=== PATIENT | male | born 1960 | race Caucasian/White ===

== ENCOUNTER 2023-01-06 06:43 | Emergency (ER) | payer BC, OTHER ==
--- OUTSIDE RECORDS SUMMARY | 2023-01-06 06:45 | XMS REPORT | Continuity of Care Document ---
:1960 Author Organization [facility] t Address [address] [place] [address] [place] [id number] Care Team Providers Name Role Phone Ronna Garza MD Primary Care Physician MD DARIUS Attending Clinician Unavailable NOELLE BARRIOS Attending Clinician Unavailable JAILENE CHAMBERS Attending Clinician Unavailable Jailene Chambers DO Attending Clinician GINNA TRUJILLO Attending Clinician Unavailable Ginna Dey Attending Clinician LAB90 Attending Clinician Unavailable Noelle Schaffer Attending Clinician RONNA GARZA Attending Clinician Unavailable VASHTI ARIAS Attending Clinician Unavailable GINNA TRUJILLO Admitting Clinician Unavailable Payers Payer Name Policy Type Policy Number Effective Date Expiration Date [facility] [employer] OF 9 [id number] 2019 [place] (ERS-BCBS 00:00:00 CAPITATED) [facility] [id number] 2019 00:00:00 Problems Condition Condition Condition Status Onset Resolution Last Treating Co mments Source Name Details Category Date Date Treatment Clinician Date Hyperlipid Hyperlipid Disease Active 2019-05 Carmita goncalves emia 0-20 Seybold 00:00: 00 Restless Restless Disease Active 2019-05 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 00:00: 00 ZOFIA ZOFIA Disease Active 2019-05 Theresa (obstructi (obstructi 0-20 Se ybold ve sleep ve sleep 00:00: apnea) apnea) 00 Allergies, Adverse Reactions, Alerts Allergy Allergy Status Severity Reaction(s) Onset Inactive Treating Comm ents Source Name Type Date Date Clinician Naproxen Propensi Active Other - See "attacks Univers ty to comments 11-09 soft ity of adverse 00:00: tissue of [place] reaction 00 body" Medical s Branch NAPROXEN DRUG Active Other-Cmnt Univ ers INGREDI 11-09 ity of 00:00: [place] 00 Medical Branch Naproxen Propensi Active Rash Theresa Sodium ty to 05-31 Seybold adverse 00:00: reaction 00 s NO KNOWN Drug Active Univers ALLERGIE Class ity of S [facility] Social History Social Habit Start Date Stop Date Quantity Comments Source History SDKS Theresa mayo Alcohol Comment Exposure to 2021-10-30 2021-11-09 Not sure University SARS-CoV-2 00:00:00 11:46:00 [facility] [place] (event) Branch Alcohol intake 2021-07-21 2021-07-21 Current drinker Sravani Smith 00:00:00 00:00:00 of alcohol (finding) Tobacco use and 2019-05-08 2019-05-08 Smokeless tobacco Delfino patel Seybold exposure 00:00:00 00:00:00 non-user History SDKS 2019-05-08 2019-05-08 2 Theresa mayo Alcohol Frequency 00:00:00 00:00:00 History SDOH 2019-05-08 2019-05-08 1 Theresa mayo Alcohol Std 00:00:00 00:00:00 Drinks History SDKS 2019-05-08 2019-05-08 1 Theresa mayo Alcohol Binge 00:00:00 00:00:00 Sex Ass[birth year] Univers[facility] of 00:00:00 00:00:00 [facility] Smoking Status Start Date Stop Date Source Unknown if [facility] [place] [facility] [place] Never smoked tobacco Theresa morataya Medications Ordered Filled Start Stop Current Ordering Indication Dosage Frequency Signature Comments Components Source Medication Medication Date Date Medication? Clinician (SIG) Name Name ondansetron No 4mg 4 mg, Univ ers (ZOFRAN-ODT 11-09 Oral, ity of ) 18:30: 17:47 ONCE, 1 [place] disintegrat 00 :00 dose, On Medi taryn ing tablet Tue11/09/21 Bra nch 4 mg at 1330, Routine NaCl 0.9% 2021- No 1000mL at 999 Uni vers (NS) bolus 11-09 mL/hr, ity of infusion 18:30: 19:56 1,000 mL, Percy as 1,000 mL 00 :00 IV Medical Infusion, Branch ONCE, 1 dose, On Tue11/09/21 at 1330, KULWANT morpHINE (4 No 4mg 4 mg, Slow Univers mg/mL) 11-09 IV Push, ity of injection 4 17:30: 17:43 [place] :[place] dose, On Medical Tue11/09/21 Branch at 1230, STAT Gabapentin Yes [id number] 300mg Take 1 Theresa 300 MG oral 3-15 capsule Seybo ld Capsule 00:00: (300 mg 00 total) by mouth every night at bedtime "need appt" Simvastatin Yes [id number] 20mg Take 1 Theresa 20 MG oral 3-15 tablet (20 Sey bold Tablet 00:00: mg total) 00 by mouth every night at bedtime Celecoxib Yes [id number] 200mg Take 1 Theresa (CeleBREX) 3-15 [id number] capsule Seyb old 200 MG oral 00:00: (200 mg Capsule 00 total) by mouth in the morning and 1 capsule (200 mg total) in the evening. Cyclobenzap Yes [id number] 5mg Q.[id number] Take 1 Theresa rine HCl 5 3-15 [id number] tablet (5 Seybold MG oral 00:00: 3D mg total) Tablet 00 by mouth 3 times daily as needed for muscle spasms Gabapentin 2020-05- No [id number] 300mg Take 1 Theresa 300 MG oral 0-12 03-15 capsule Seyb old Capsule 00:00: 00:00 (300 mg 00 :00 total) by mouth every night at bedtime "need appt" Simvastatin 2021- No TAKE 1 Javi sey 20 MG oral 12-22 TABLET(20 Sey bold Tablet 00:00: 00:00 MG) BY 00 :00 MOUTH EVERY NIGHT AT BEDTIME Diclofenac 2021- No [id number] 75mg Take 1 Theresa Sodium 75 07-01 [id number] tablet (75 S eybold MG oral 00:00: 00:00 mg total) Tablet 00 :00 by mouth 2 Delayed times Response daily As needed for pain. Take with meal Acetaminoph 2021- No [id number] 1{tbl} Take 1 Theresa en-Codeine 07-01 [id number] tablet by S eybold 300-30 MG 00:00: 00:00 mouth oral Tablet 00 :00 every 12 hours as needed for pain (for mod pain. caution sedation) Immunizations Ordered Immunization Filled Immunization Date Status Commen ts Source Name Name Covid-19 Vaccine 2020-06-19 Completed Theresa moreau Moderna (Spikevax), 00:00:00 Mrna-lnp, Matt Protein, Pf Covid-19 Vaccine 2020-05-22 Completed Theresa moreau Moderna (Spikevax), 00:00:00 Mrna-lnp, Matt Protein, Pf Vital Signs Vital Name Observation Time Observation Value Comments Source Systolic blood 2021-11-09 19:27:50 142 mm[facility]Hg[facility] 2021-11-09 19:27:50 92 mm[Hg] [facility] Heart rate 2021-11-09 19:27:50 58 /min [facility] Respiratory rate 2021-11-09 19:27:50 19 /min [facility] Oxygen saturation in 2021-11-09 19:27:50 98 /min [facility] Arterial blood by [facility] Pulse oximetry Branch Body temperature 2021-11-09 17:04:37 36 Melissa [facility] Body height 2021-11-09 16:47:00 182.9 cm [facility] Body weight 2021-11-09 16:47:00 145.151 kg [facility] BMI 2021-11-09 16:47:00 43.40 kg/m2 [facility] Systolic blood 2021-07-21 13:44:00 136 mm[Hg] Theresa Seybold pressure Diastolic blood 2021-07-21 13:44:00 78 mm[Hg] Kelse y Seybold pressure Heart rate 2021-07-21 13:44:00 65 /min Theresa bowersbomaria esther Body temperature 2021-07-21 13:44:00 36.89 Melissa Marienathalia bowers Seybold Respiratory rate 2021-07-21 13:44:00 12 /min Marie elissa Orlandoybold Body height 2021-07-21 13:44:00 182.9 cm Theresa bowersbomaria esther Body weight 2021-07-21 13:44:00 146.965 kg Theresa bowersbomaria esther BMI 2021-07-21 13:44:00 43.94 kg/m2 Theresa moreau Procedures Procedure Date / Time Performed Performing Clinician Matilde e CT ABDOMEN PELVIS WO 2021-11-09 18:17:11 Ginna Trujillo [facility] CONTRAST [facility] Branch LIPASE 2021-11-09 17:43:00 Cassandra [facility] COMP. METABOLIC PANEL 2021-11-09 17:43:00 Ginna Trujillo [facility] ([id number]) [facility] CBC WITH DIFF 2021-11-09 17:43:00 Cassandra [facility] URINALYSIS 2021-11-09 17:43:00 Cassandra [facility] CONSENT/REFUSAL FOR 2021-11-09 16:54:31 Doctor Unassigned, No [facility] [place] [facility] DIAGNOSIS AND Name Medical [place] TREATMENT NOTICE OF PRIVACY 2021-11-09 16:42:03 Doctor Unassigned, No Univ [facility] Name [facility] EXTERNAL IMAGING 2021-07-21 16:01:00 Noelle Barrios old Encounters Start End Encounter Admission Attending Care Care Encounter Source Date/Time Date/Time Type Type Clinicians Facility Department ID 2023-01-04 2023-01-04 Outpatient ROSELINE THERESA MOE [id number] Theresa 00:00:00 00:00:00 MD DAVIDE Seybol d 2022-11-27 2022-11-27 Outpatient SOPHIE THERESA MOE [id number] Theresa 00:00:00 00:00:00 NOELLE Seybol d 2022-09-24 2022-09-24 Outpatient HUNDL THERESA MOE [id number] Theresa 00:00:00 00:00:00 NOELLE Seybol d 2022-08-09 2022-08-09 Outpatient HUNDEmilia THERESA MOE [id number] Theresa 00:00:00 00:00:00 NOELLE Seybol d 2022-07-01 2022-07-01 Outpatient HUNDEmilia THERESA MOE [id number] Theresa 00:00:00 00:00:00 NOELLE Seybol d 2022-06-30 2022-06-30 Outpatient SOPHIE THERESA MOE [id number] Theresa 00:00:00 00:00:00 NOELLE Seybol d 2022-06-07 2022-06-07 Outpatient SOPHIE THERESA MOE [id number] Theresa 00:00:00 00:00:00 NOELLE Seybol d 2022-05-26 2022-05-26 Outpatient SOPHIE THERESA MOE [id number] Theresa 00:00:00 00:00:00 NOELLE Seybol d 2022-04-28 2022-04-28 Outpatient SOPHIE THERESA MOE [id number] Theresa 00:00:00 00:00:00 NOELLE Seybol d 2022-01-15 2022-01-15 Outpatient SOPHIE THERESA MOE [id number] Theresa 00:00:00 00:00:00 NOELLE Seybol d 2021-12-18 2021-12-18 Outpatient ROSELINE THERESA MOE [id number] Theresa 00:00:00 00:00:00 MD DAVIDE Seybol d 2021-12-08 2021-12-08 Outpatient THERESA CHAMBERS [id number] Theresa 08:30:00 08:30:00 JAILENE Seybol d 2021-11-23 2021-11-23 Outpatient THERESA CHAMBERS [id number] Theresa 00:00:00 00:00:00 JAILENE Seybol d 2021-11-12 2021-11-12 Outpatient THERESA CHAMBERS [id number] Theresa 00:00:00 00:00:00 JAILENE Seybol d 2021-11-10 2021-11-10 Office Benito Chambers [id number] Theresa 14:00:00 14:30:00 Visit Jailene Rogers [id number] Se mandy [id number] 2021-11-09 2021-11-09 Emergency X CASSANDRA, [facility] ERT [id number] Univers 11:45:00 14:59:00 GINNA mcgee [facility] 2021-11-09 2021-11-09 Emergency [facility] [id number] Univers 11:45:00 14:59:00 Ginna CYR [id number] i ty [facility] [id number] [facility] [id number] 2021-09-18 2021-09-18 Outpatient THERESA BARRIOS [id number] Theresa 00:00:00 00:00:00 NOELLE Seybol d 2021-09-18 2021-09-18 Outpatient THERESA BARRIOS [id number] Theresa 00:00:00 00:00:00 NOELLE Seybol d 2021-08-17 2021-08-17 Outpatient THERESA MOE [id number] Theresa 10:00:00 10:00:00 Seybol d 2021-07-30 2021-07-30 Outpatient THERESA BARRIOS [id number] Theresa 00:00:00 00:00:00 NOELLE Seybol d 2021-07-29 2021-07-29 Outpatient THERESA BARRIOS [id number] Theresa 00:00:00 00:00:00 NOELLE Seybol d 2021-07-28 2021-07-28 Outpatient SOPHIE THERESA MOE [id number] Theresa 00:00:00 00:00:00 NOELLE Seybol d 2021-07-22 2021-07-22 Outpatient THERESA MOE [id number] Theresa 00:00:00 00:00:00 Seybol d 2021-07-21 2021-07-21 Outpatient LAB90 THERESA MOE [id number] Theresa 09:55:00 09:55:00 Seybol d 2021-07-21 2021-07-21 Office Benito Barrios [id number] Theresa 09:00:00 09:30:00 Visit Noelle Ken [id number] mandy [id number] 2021-07-21 2021-07-21 Outpatient DIANAEmilia THERESA MOE [id number] Theresa 00:00:00 00:00:00 NOELLE Seybol d 2021-04-15 2021-04-15 Outpatient THERESA GARZA [id number] Theresa 00:00:00 00:00:00 RONNA Seybol d 2020-12-22 2020-12-22 Outpatient LILLYTEHRESAMYAEmilia MOE [id number] Theresa 00:00:00 00:00:00 MD DAVIDE Seybol d 2020-12-13 2020-12-13 Outpatient VASHTI ARIAS [id number] Theresa 08:50:00 08:50:00 Seybol d Results Test Description Test Time Test Comments Results Result Comments Source COMP. METABOLIC PANEL (02407) 2021-11-09 18:17:22 Test Item Value Reference Range Interpretation Comme nts NA (test code = 8466541650) 140 mmol/L 135-145 K (test code = 0244606188) 4.5 mmol/L 3.5-5.0 CL (test code = 1671808993) 100 mmol/L 98-108 CO2 TOTAL (test code = 1397091654) 28 mmol/L 23-31 AGAP (test code = 4137476141) 2-16 BUN (test code = 0933692939) 16 mg/dL 7-23 GLUCOSE (test code = 8019346663) 114 mg/dL 70-110 H CREATININE (test code = 0.93 mg/dL 0.60-1.25 3231251346) TOTAL BILI (test code = 1.6 mg/dL 0.1-1.1 H 9293047249) CALCIUM (test code = 2196171955) 9.4 mg/dL 8.6-10.6 T PROTEIN (test code = 4827981690) 7.5 g/dL 6.3-8.2 ALBUMIN (test code = 7016068778) 4.8 g/dL 3.5-5.0 ALK PHOS (test code = 0421552481) 91 U/L 34-122 ALTv (test code = 1742-6) 21 U/L 5-50 AST(SGOT) (test code = 8766014514) 26 U/L 13-40 eGFR (test code = 6737411744) mL/min/1.73m2 HERMELINDO (test code = HERMELINDO) Association of Glomerular Filtration Rate (GFR) and Staging of Kidney Disease* + +-------- + ------+| GFR (mL/min/1.73 m2) ?| With Kidney Damage ?| ?Without Kidney Damage+ +-- + +| ?>90 ?| ?Stage one ?| ? Normal ?+ +------- + -------+| ?60-89 ?| ?Stage two ?| ? Decreased GFR ? + +-------- + ------+| ?30-59 ?| ?Stage three ?| ? Stage three ? + +-------- + ------+| ?15-29 ?| ?Stage four ? | ? Stage four ?+ +------- + -------+| ?<15 (or dialysis) ? ?| ?Stage five ? | ? Stage five ?+ +------- + -------+ *Each stage assumes the associated GFR level has been in effect for at least three months. ?Stages 1 to 5, with or without kidney disease, indicate chronic kidney disease. Notes: Determination of stages one and two (with eGFR >59mL/min/1.73 m2) requires estimation of kidney damage for at least three months as defined by structural or functional abnormalities of the kidney, manifested by either:Pathological abnormalities or Markers of kidney damage (including abnormalities in the composition of the blood or urine or abnormalities in imaging tests). Lab Interpretation (test code = Abnormal 22829-0) [facility] 18[facility]16:42 Test Item Value Reference Range Interpretation Comments LIPASE (test code = 7458777783) 87 U/L 0-220 Lab Interpretation (test code = Normal 48610-9) [facility] WITH [id number] 18:04:05 Test Item Value Reference Range Interpretation Comments WBC (test code = See_Comment [Automated 6690-2) message] The sy stem which generated this result transmitted reference range : 4.20 - 10.70 10*3/?L. The reference range was not used to interpret this result as normal/abnormal . RBC (test code = See_Comment [Automated 789-8) message] The sy stem which generated this result transmitted reference range : 4.26 - 5.52 10*6/?L. The reference range was not used to interpret this result as normal/abnormal . HGB (test code = 17.0 g/dL 12.2-16.4 H 718-7) HCT (test code = 49.5 % 38.4-49.3 H 4544-3) MCV (test code = 93.8 fL 81.7-95.6 787-2) MCH (test code = 32.2 pg 26.1-32.7 785-6) MCHC (test code = 34.3 g/dL 31.2-35.0 786-4) RDW-SD (test code = 47.8 fL 38.5-51.6 92865-9) RDW-CV (test code = 13.9 % 12.1-15.4 788-0) PLT (test code = See_Comment [Automated 777-3) message] The sy stem which generated this result transmitted reference range : 150 - 328 10*3/ ?L. The reference r jacki was not used to interpret this result as normal/abnormal . MPV (test code = 10.3 fL 9.8-13.0 40063-3) NRBC/100 WBC (test See_Comment [Automat ed code = 1692954658) message] The system which generated this result transmitted reference range : 0.0 - 10.0 /100 WBCs. The refer ence range was not u sed to interpret th is result as normal/abnormal . NRBC x10^3 (test code <0.01 See_Comment [Auto mated = 0098415888) message] The s ystem which generated this result transmitted reference range : 10*3/?L. The reference range was not used to interpret this result as normal/abnormal . GRAN MAT (NEUT) % 76.3 % (test code = 770-8) IMM GRAN % (test code 0.50 % = 8051689669) LYMPH % (test code = 14.6 % 736-9) MONO % (test code = 6.8 % 5905-5) EOS % (test code = 1.1 % 713-8) BASO % (test code = 0.7 % 706-2) GRAN MAT x10^3(ANC) 5.65 10*3/uL 1.99-6.95 (test code = 5154370688) IMM GRAN x10^3 (test 0.04 10*3/uL 0.00-0.06 code = 3820440421) LYMPH x10^3 (test code 1.08 10*3/uL 1.09-3.23 L = 731-0) MONO x10^3 (test code 0.50 10*3/uL 0.36-1.02 = 742-7) EOS x10^3 (test code = 0.08 10*3/uL 0.06-0.53 711-2) BASO x10^3 (test code 0.05 10*3/uL 0.01-0.09 = 704-7) Lab Interpretation Abnormal (test code = 93004-1) [facility] [id number] 16:26:00 Test Item Value Reference Range Interpretation Comments Radiology Study observation (narrative) (test code = 52918-5) HERMELINDO (test code = HERMELINDO) [facility]. ?[facility] K[facility] Right 3 View07/21/2021 ?1101 am Clinical History: ?Right knee pain Findings: ?No fracture or dislocation is seen. Moderate osteoarthritis medical compartment mainly consisting of joint space narrowing and osteophytes. Mild lateral subluxation of the tibia on the femur If patient continues to have symptoms to suggest an occult fracture, ligamentous or miniscal injury MRI would be recommended. Dictated and signed by: ?New Rod MD ?07/21/21 Complete report sent to scanning Lab Interpretation Abnormal (test code = 28953-2) Theresa Smith
[2023-01-06 07:23] LABS: Absolute Lymphocytes (CBC) 1.1 K/uL (0.7-4.9); Hematocrit 44.6 % (39.6-49.0); Lymphocytes % 15.2 % (15.3-44.8); MCV 96.8 fL (80-100); MPV 7.9 fL (7.6-11.3); Platelets 225 thou/uL (152-406); RBC Red Blood Cell Count 4.61 M/uL (4.33-5.43)
[2023-01-06] MEDS ORDERED: MORPHINE 4 MG/ML SYR ONE (07:28)
[2023-01-06] MEDS ORDERED: TAMSULOSIN 0.4 MG SR CAP ONE (07:28)
[2023-01-06] MEDS ORDERED: MAGNESIUM SULFATE 1 gm IVPB 1 GM/100 ML BAG IV ONE (07:28)
[2023-01-06] MEDS ORDERED: ONDANSETRON 4 MG/2 ML VIAL ONE (07:28)
--- NOTE | 2023-01-06 07:28 | RAD REPORT ---
EXAM DESCRIPTION: CT - Stone Protocol - 01/06/2023 7:17 am CLINICAL HISTORY: Abdominal pain. COMPARISON: 2014 TECHNIQUE: Computed axial tomography of the abdomen pelvis was obtained without oral or IV contrast. Lack of IV and oral contrast limits evaluation of solid organs, appendix, bowel, and vessels. Fermin l reformatted images were obtained and reviewed. All CT scans are performed using dose optimization technique as appropriate and may include automated exposure control or mA/KV adjustment according to patient size. FINDINGS: Tiny bilateral renal calculi Mild right hydronephrosis. 2 millimeter calculus right UVJ. Areas of cortical thinning left kidney may be related to prior inflammation Postsurgical changes involve the stomach. Small left inguinal hernia contains fat. Small umbilical hernia The liver, spleen, pancreas and right adrenal appear grossly normal 1.8 centimeter left adrenal mass unchanged. Hounsfield unit 4. It represents an adenoma There is no evidence of diverticulitis. The appendix appears normal IMPRESSION: 2 millimeter calculus right UVJ with mild right hydronephrosis
[2023-01-06 07:49] LABS: Albumin 4.1 g/dL (3.4-5.0); Bilirubin Total 1.2 mg/dL (0.2-1.0); Protein, Total 7.4 g/dL (6.4-8.2)
[2023-01-06] MEDS ORDERED: HYDROMORPHONE HCL 1 MG/ML INJ ONE ×2 (08:05→09:15)
--- NOTE | 2023-01-06 10:26 | EDPHYS ---
Physician Documentation [facility] Name: Gerhard Gonzalez Age: 62 yrs Sex: Male : 1960 Arrival Date: 01/06/2023 Time: 06:43 Bed 14 Private MD: ED Physician Chidi Simpson HPI: 01/06 07:16 This 62 yrs old Male presents to ER via Ambulatory with complaints of Back Pain. rn 07:16 The patient presents with pain that is acute. The symptoms are located in the low back. rn Onset: The symptoms/episode began/occurred this morning. The pain radiates to the abdomen. Associated signs and symptoms: Pertinent positives: dysuria, nausea, Pertinent negatives: fever, hematuria, incontinence, numbness, urinary retention. Modifying factors: The patient symptoms are alleviated by nothing, the patient symptoms are aggravated by nothing. Severity of symptoms: At their worst the symptoms were moderate, in the emergency department the symptoms have improved. The patient has experienced similar episodes in the past. The patient has not recently seen a physician. Patient reports right flank pain that radiates to the right groin, identical to previous episodes of kidney stones. Associated with nausea and dysuria but able to urinate. No fever. No trauma.. Historical: - Allergies: 07:04 Naproxen; ll1 - PMHx: 07:04 Hypertensive disorder; Kidney stone; ll1 - PSHx: 07:04 None; ll1 - Immunization history:: Adult Immunizations up to date. - Social history:: Smoking status: Patient denies any tobacco usage or history of. - Family history:: not pertinent. - Hospitalizations: : No recent hospitalization is reported. ROS: 07:16 Constitutional: Negative for fever, chills, and weight loss, Eyes: Negative for injury, rn pain, redness, and discharge, Cardiovascular: Negative for chest pain, palpitations, and edema, Respiratory: Negative for shortness of breath, cough, wheezing, and pleuritic chest pain, Abdomen/GI: Positive for right lower quadrant abdominal pain and nausea Back: Positive for right lower back pain MS/Extremity: Negative for injury and deformity, Skin: Negative for injury, rash, and discoloration, Neuro: Negative for headache, weakness, numbness, tingling, and seizure. Exam: 07:16 Constitutional: This is a well developed, well nourished patient who is awake, alert, rn and in no acute distress. ON the phone as I wlk in, appears comfortable. Head/Face: Normocephalic, atraumatic. Cardiovascular: Regular rate and rhythm. No pulse deficits. Respiratory: No increased work of breathing, no retractions or nasal flaring. Abdomen/GI: soft, no focal tenderness Back: No spinal tenderness. No costovertebral tenderness. Full range of motion. Skin: Warm, dry MS/ Extremity: Pulses equal, no cyanosis. Neuro: Awake and alert, GCS 15 Vital Signs: 07:00 BP 157 / 99; Pulse 64; Resp 16; Pulse Ox 100% on R/A; db 07:04 BP 172 / 103; Pulse 65; Resp 16; Temp 98.2; Pulse Ox 100% on R/A; Weight 147.42 kg; ll1 Height 6 ft. 0 in. ; Pain 8/10; 07:54 BP 156 / 94; Pulse 65; Resp 18; Pulse Ox 96% on R/A; db 08:45 BP 156 / 85; Pulse 63; Resp 16; Pulse Ox 97% on R/A; db 09:30 BP 152 / 81; Pulse 63; Resp 16; Pulse Ox 97% on R/A; db 11:00 BP 150 / 84; Pulse 61; Resp 16; Pulse Ox 95% on R/A; db 07:04 Body Mass Index 44.08 (147.42 kg, 182.88 cm) ll1 07:04 Pain Scale: Adult ll1 MDM: 07:01 Patient medically screened. rn 10:22 Differential diagnosis: Ureterolithiasis. Data reviewed: vital signs, nurses notes, sleep lab technologist test result(s), radiologic studies, CT scan, and as a result, I will discharge patient. Counseling: I had a detailed discussion with the patient and/or guardian regarding the historical points, exam findings, and any diagnostic results supporting the discharge/admit diagnosis, lab results, radiology results, the need for outpatient follow up, to return to the emergency department if symptoms worsen or persist or if there are any questions or concerns that arise at home. Response to treatment: the patient's symptoms have markedly improved after treatment, and as a result, I will discharge patient. Special discussion: I discussed with the patient/guardian in detail that at this point there is no indication for admission to the hospital. It is understood, however, that if the symptoms persist or worsen the patient needs to return immediately for re-evaluation. Based on the history and exam findings, there is no indication for further emergent testing or inpatient evaluation. I discussed with the patient/guardian the need to see the primary care provider for further evaluation of the symptoms. I discussed with the patient/guardian the need to see the urologist for further evaluation of the symptoms. ED course: Patient markedly improved. Patient with 2 mm distal stone almost in bladder at time of CAT scan. Normal white blood cell count. No indication for emergent procedure or admission. Last dose of Dilaudid patient got really sleepy and transiently dropped his oxygen, now more awake and alert but explained to patient that he was at his limit for pain medication and he understands. Has had multiple kidney stones in the past and will DC home with pain control and as needed nausea medication. Given return precautions. 01/06 07:04 Order name: CBC with Diff; Complete Time: 07:32 rn 01/06 07:04 Order name: CMP; Complete Time: 09:00 rn 01/06 07:04 Order name: Urinalysis w/ reflexes; Complete Time: 10:58 rn 01/06 07:04 Order name: CT Stone Protocol; Complete Time: 07:32 rn 01/06 07:04 Order name: IV Saline Lock; Complete Time: 07:26 rn 01/06 07:04 Order name: Labs collected and sent; Complete Time: 07:26 rn Administered Medications: 07:24 Drug: morphine IVP or IV 4 mg Route: IVP; Infused Over: 4 mins; Site: right antecubital;db 11:30 Follow up: Response: No adverse reaction db 07:26 Drug: Ondansetron IVP 4 mg Route: IVP; Site: right antecubital; db 11:30 Follow up: Response: No adverse reaction db 07:26 Drug: Magnesium Sulfate IVPB 1 grams Route: IVPB; Infused Over: 1 hrs; Site: right db antecubital; 08:30 Follow up: Response: No adverse reaction; IV Status: Completed infusion; IV Intake: db 100ml 07:45 Drug: Flomax PO 0.4 mg Route: PO; db 11:30 Follow up: Response: No adverse reaction db 07:54 Drug: HYDROmorphone IVP 1 mg Route: IVP; Site: right antecubital; db 11:30 Follow up: Response: No adverse reaction db 09:10 Drug: HYDROmorphone IVP 1 mg Route: IVP; Site: right antecubital; db 11:30 Follow up: Response: No adverse reaction db 11:23 Drug: Ketorolac IVP 15 mg Route: IVP; Site: right antecubital; db 11:30 Follow up: Response: No adverse reaction db Disposition Summary: 01/06/23 10:25 Discharge Ordered Location: Home rn Problem: new rn Symptoms: have improved rn Condition: Stable rn Diagnosis - Calculus of ureter rn Followup: rn - With: Private Physician - When: As needed - Reason: Recheck today's complaints, Re-evaluation by your physician Discharge Instructions: - Discharge Summary Sheet rn - Kidney Stones rn Forms: - Medication Reconciliation Form rn - Thank You Letter rn - Antibiotic fashion buying internship - Prescription Opioid Use rn - Patient Portal Instructions rn - Leadership Thank You Letter rn Prescriptions: - Flomax 0.4 mg Oral capsule - take 1 capsule by ORAL route every 24 hours As needed Take only if still rn passing kidney stone; 10 capsule; Refills: 0, Product Selection Permitted - ondansetron 4 mg Oral Tablet,disintegrating - take 1 tablet by ORAL route every 8 hours As needed; 12 tablet; Refills: 0, rn Product Selection Permitted - Tramadol 50 mg Oral Tablet - take 1 tablet by ORAL route every 8 hours as needed; 12 tablet; Refills: 0, rn Product Selection Permitted Signatures: Dispatcher [employer] Chidi Jamil MD MD rn Lewis, Lynsay, RN RN 1 Janene Tobias RN RN db
--- NOTE | 2023-01-06 10:26 | ER ---
Nurse's Notes [facility] Name: Gerhard Gonzalez Age: 62 yrs Sex: Male : 1960 Arrival Date: 01/06/2023 Time: 06:43 Bed 14 Private MD: Diagnosis: Calculus of ureter Presentation: 01/06 07:04 Chief complaint: Patient states: R flank pain with N/V since 4 AM. Coronavirus screen: ll1 Vaccine status: Patient reports receiving the 2nd dose of the covid vaccine. Client denies travel out of the [place] in the last 14 days. At this time, the client does not indicate any symptoms associated with coronavirus-19. Ebola Screen: Patient denies travel to an Ebola-affected area in the 21 days before illness onset. Initial Sepsis Screen: Does the patient meet any 2 criteria? No. Patient's initial sepsis screen is negative. Does the patient have a suspected source of infection? Yes: Dysuria/Frequency/Urgency/UTI. Risk Assessment: Do you want to hurt yourself or someone else? Patient reports no desire to harm self or others. Onset of symptoms was January 06, 2023. 07:04 Method Of Arrival: Ambulatory ll1 07:04 Acuity: SALO 3 ll1 Triage Assessment: 07:05 General: Appears uncomfortable, Behavior is calm, cooperative, appropriate for age. ll1 Pain: Complains of pain in R flank Pain currently is 8 out of 10 on a pain scale. GI: Reports nausea, vomiting. : Reports pain in right flank(s), hard to urinate. Historical: - Allergies: 07:04 Naproxen; ll1 - PMHx: 07:04 Hypertensive disorder; Kidney stone; ll1 - PSHx: 07:04 None; ll1 - Immunization history:: Adult Immunizations up to date. - Social history:: Smoking status: Patient denies any tobacco usage or history of. - Family history:: not pertinent. - Hospitalizations: : No recent hospitalization is reported. Screenin:01 [facility] ED Fall Risk Assessment (Adult) History of falling in the last 3 months, db including since admission No falls in past 3 months (0 pts) Confusion or Disorientation No (0 pts) Intoxicated or Sedated No (0 pts) Impaired Gait No (0 pts) Mobility Assist Device Used No (0 pt) Altered Elimination No (0 pt) Score/Fall Risk Level 0 - 2 = Low Risk Oriented to surroundings, Maintained a safe environment. Abuse screen: Denies threats or abuse. Denies injuries from another. Nutritional screening: No deficits noted. Tuberculosis screening: No symptoms or risk factors identified. Assessment: 07:10 Reassessment: Patient appears in no apparent distress at this time. Patient and/or db family updated on plan of care and expected duration. Pain level reassessed. Patient is alert, oriented x 3, equal unlabored respirations, skin warm/dry/pink. flank pain started last night. General: Appears in no apparent distress. uncomfortable, Behavior is calm, cooperative. Pain: Complains of pain in back and abdomen. Neuro: Level of Consciousness is awake, alert, obeys commands, Oriented to person, place, time, situation. 08:30 Reassessment: Patient appears in no apparent distress at this time. Patient and/or db family updated on plan of care and expected duration. Pain level reassessed. Patient is alert, oriented x 3, equal unlabored respirations, skin warm/dry/pink. 09:30 Reassessment: Patient appears in no apparent distress at this time. Patient and/or db family updated on plan of care and expected duration. Pain level reassessed. Patient is alert, oriented x 3, equal unlabored respirations, skin warm/dry/pink. 11:31 Reassessment: Patient appears in no apparent distress at this time. Patient and/or db family updated on plan of care and expected duration. Pain level reassessed. Patient is alert, oriented x 3, equal unlabored respirations, skin warm/dry/pink. Reassessment: Patient states feeling better. Patient states symptoms have improved. General: Appears in no apparent distress. Behavior is calm, cooperative. General: Appears in no apparent distress. comfortable. Vital Signs: 07:00 BP 157 / 99; Pulse 64; Resp 16; Pulse Ox 100% on R/A; db 07:04 BP 172 / 103; Pulse 65; Resp 16; Temp 98.2; Pulse Ox 100% on R/A; Weight 147.42 kg; ll1 Height 6 ft. 0 in. ; Pain 8/10; 07:54 BP 156 / 94; Pulse 65; Resp 18; Pulse Ox 96% on R/A; db 08:45 BP 156 / 85; Pulse 63; Resp 16; Pulse Ox 97% on R/A; db 09:30 BP 152 / 81; Pulse 63; Resp 16; Pulse Ox 97% on R/A; db 11:00 BP 150 / 84; Pulse 61; Resp 16; Pulse Ox 95% on R/A; db 07:04 Body Mass Index 44.08 (147.42 kg, 182.88 cm) ll1 07:04 Pain Scale: Adult ll1 ED Course: 06:47 Patient arrived in ED. ag3 07:01 Chidi Simpson MD is Attending Physician. rn 07:03 Janene Tobias, AILYN is Primary Nurse. db 07:04 Arm band placed on Patient placed in an exam room, on a stretcher. ll1 07:05 Triage completed. ll1 07:12 Inserted saline lock: 20 gauge in right antecubital area, using aseptic technique. db Blood collected. 07:18 CT Stone Protocol In Process Unspecified. EDMS 11:15 Pulse ox on. NIBP on. db 11:31 No provider procedures requiring assistance completed. IV discontinued, intact, db bleeding controlled, No redness/swelling at site. 11:32 Bed in low position. Call light in reach. Side rails up X2. Provided Education on: db DISCHARGE. Administered Medications: 07:24 Drug: morphine IVP or IV 4 mg Route: IVP; Infused Over: 4 mins; Site: right antecubital;db 11:30 Follow up: Response: No adverse reaction db 07:26 Drug: Ondansetron IVP 4 mg Route: IVP; Site: right antecubital; db 11:30 Follow up: Response: No adverse reaction db 07:26 Drug: Magnesium Sulfate IVPB 1 grams Route: IVPB; Infused Over: 1 hrs; Site: right db antecubital; 08:30 Follow up: Response: No adverse reaction; IV Status: Completed infusion; IV Intake: db 100ml 07:45 Drug: Flomax PO 0.4 mg Route: PO; db 11:30 Follow up: Response: No adverse reaction db 07:54 Drug: HYDROmorphone IVP 1 mg Route: IVP; Site: right antecubital; db 11:30 Follow up: Response: No adverse reaction db 09:10 Drug: HYDROmorphone IVP 1 mg Route: IVP; Site: right antecubital; db 11:30 Follow up: Response: No adverse reaction db 11:23 Drug: Ketorolac IVP 15 mg Route: IVP; Site: right antecubital; db 11:30 Follow up: Response: No adverse reaction db Medication: 11:32 VIS not applicable for this client. db Intake: 08:30 IV: 100ml; Total: 100ml. db Outcome: 10:25 Discharge ordered by . rn 11:31 Discharged to home ambulatory, with family. db 11:31 Condition: stable 11:31 Discharge instructions given to patient, Instructed on discharge instructions, follow up and referral plans. Prescriptions given X 3. 11:44 Patient left the ED. db Signatures: Dispatcher [employer] EDMS Chidi Simpson MD MD rn Fiona Gonzalez Lynsay RN RN ll1 Janene Tobias RN RN db
[2023-01-06 10:48] LABS: Specific Gravity > 1.030 (1.005-1.030); Urine Bacteria None Seen /HPF (<20); Urine Bilirubin NEGATIVE (Negative); Urine Blood 2+ (Negative); Urine Clarity Clear (Clear); Urine Color Yellow (Yellow); Urine Glucose NEGATIVE (Negative); Urine Mucus Slight /HPF (None Seen); Urine Protein TRACE (Negative); Urine Urobilinogen Normal (Normal)
[2023-01-06] MEDS ORDERED: KETOROLAC 30 MG/ML INJ ONE (11:22)
[2023-01-06 12:20] VITALS: TEMP 98.2
[2023-01-06 12:24] VITALS: BP 150/84; O2SAT 95
== END 2023-01-06 11:44 | disposition home or self-care (01) ==
LOC: ER 06:43
DX: N20.1 Calculus of ureter (principal); Z87.442 Personal history of urinary calculi; I10 Essential (primary) hypertension; Z88.6 Allergy status to analgesic agent
CPT/HCPCS: 96365; 85025; 81001; 36415; 80053; 76377; 74176; 96375; 99284; J3475; J1170 ×2; J2405

== ENCOUNTER 2023-03-04 08:30 | Emergency (ER) | payer BC ==
--- OUTSIDE RECORDS SUMMARY | 2023-03-04 08:32 | XMS REPORT | Continuity of Care Document ---
:1960 Author Organization [facility] t Address [address] [place] [address] [place] [id number] Care Team Providers Name Role Phone FRENCH GARZA Primary Care Physician Unavailable NOELLE BARRIOS Attending Clinician Unavailable FRENCH GARZA Attending Clinician Unavailable MD DARIUS Attending Clinician Unavailable JAILENE CHAMBERS Attending Clinician Unavailable Jailene Chambers DO Attending Clinician EBGINNA MUNGUIA Attending Clinician Unavailable EbrahiGinna Hunter Attending Clinician LAB90 Attending Clinician Unavailable Marcos LENTZ-CNoelle Attending Clinician VASHTI ARIAS Attending Clinician Unavailable GINNA TRUJILLO Admitting Clinician Unavailable Payers Payer Name Policy Type Policy Number Effective Date Expiration Date S [facility] 9 [id number] 2019 [place] 00:00:00 CAPITATED) [facility] [id number] 2019 00:00:00 Problems Condition Condition Condition Status Onset Resolution Last Treating Co mments Source Name Details Category Date Date Treatment Clinician Date ZOFIA ZOFIA Disease Active 2019-05 Theresa (obstructi (obstructi 0-20 Se ybold ve sleep ve sleep 00:00: apnea) apnea) 00 Hyperlipid Hyperlipid Disease Active 2019-05 K mary emia emia 0-20 Seybold 00:00: 00 Restless Restless Disease Active 2019-05 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 00:00: 00 Allergies, Adverse Reactions, Alerts Allergy Allergy Status Severity Reaction(s) Onset Inactive Treating Comm ents Source Name Type Date Date Clinician Naproxen Propensi Active Other - See "attacks Univers ty to comments 11-09 soft ity of adverse 00:00: [facility] [place] reaction 00 body" Medical s Branch NAPROXEN DRUG Active Other-Cmnt Univ ers INGREDI 7 ity of 00:00: [place] 00 [facility] Naproxen Propensi Active Rash Theresa Sodium ty to 05-31 Seybold adverse 00:00: reaction 00 s NO KNOWN Drug Active Univers ALLERGIE Class ity of S [facility] Social History Social Habit Start Date Stop Date Quantity Comments Source History SDOH Theresa mayo Alcohol Comment Exposure to 2021-10-30 2021-11-09 Not sure University SARS-CoV-2 00:00:00 11:46:00 [facility] (event) Branch Alcohol intake 2021-07-21 2021-07-21 Current drinker Sravani Smith 00:00:00 00:00:00 of alcohol (finding) Tobacco use and 2019-05-08 2019-05-08 Smokeless tobacco Ke brodyey Seybold exposure 00:00:00 00:00:00 non-user History SDRI 2019-05-08 2019-05-08 2 Theresa mayo Alcohol Frequency 00:00:00 00:00:00 History SDRI 2019-05-08 2019-05-08 1 Theresa mayo Alcohol Std 00:00:00 00:00:00 Drinks History [facility] 2019-05-08 2019-05-08 1 Theresa mayo Alcohol Binge 00:00:00 00:00:00 Sex Ass[birth year] At [birth year] Universit [facility] of 00:00:00 00:00:00 [facility] Smoking Status Start Date Stop Date Source Unknown [facility] Never smoked tobacco Theresa Seyb old Medications Ordered Filled Start Stop Current Ordering Indication Dosage Frequency Signature Comments Components Source Medication Medication Date Date Medication? Clinician (SIG) Name Name ondansetron No 4mg 4 mg, Univ ers (ZOFRAN-ODT 11-09 Oral, ity of ) 18:30: 17:47 ONCE, 1 [place] disintegrat 00 :00 dose, On Medi taryn ing tablet Tue11/09/21 Bra nch 4 mg at 1330, Routine NaCl 0.9% No 1000mL at 999 Uni vers (NS) [...] Tue11/09/21 Branch at 1230, STAT Gabapentin Yes [id number] 300mg Take 1 Theresa 300 MG oral 3-15 capsule Seybo ld Capsule 00:00: (300 mg 00 total) by mouth every night at bedtime "need appt" Simvastatin Yes [id number] 20mg Take 1 Theresa 20 MG oral 3-15 tablet (20 Sey bold Tablet 00:00: mg total) 00 by mouth every night at bedtime Celecoxib Yes [id number] 200mg Take 1 Theresa (CeleBREX) 3-15 [id number] capsule Seyb old 200 MG oral 00:00: (200 mg Capsule 00 total) by mouth in the morning and 1 capsule (200 mg total) in the evening. Cyclobenzap Yes [id number] 5mg Q.[id number] Take 1 Theresa rine HCl 5 3-15 [id number] tablet (5 Seybold MG oral 00:00: 3D mg total) Tablet 00 by mouth 3 times daily as needed for muscle spasms Gabapentin 2020-05- No [id number] 300mg Take 1 Theresa 300 MG oral 0-12 03-15 capsule Seyb old Capsule 00:00: 00:00 (300 mg 00 :00 total) by mouth every night at bedtime "need appt" Simvastatin 2021- No TAKE 1 Javi sey 20 MG oral 12-22 TABLET(20 Sey bold Tablet 00:00: 00:00 MG) BY 00 :00 MOUTH EVERY NIGHT AT BEDTIME Diclofenac 2021- No [id number] 75mg Take 1 Theresa Sodium 75 07-01 [id number] tablet (75 S eybold MG oral 00:00: 00:00 mg total) Tablet 00 :00 by mouth 2 Delayed times Response daily As needed for pain. Take with meal Acetaminoph 2021- No [id number] 1{tbl} Take 1 Theresa en-Codeine 07-01 [id number] tablet by S eybold 300-30 MG 00:00: 00:00 mouth oral Tablet 00 :00 every 12 hours as needed for pain (for mod pain. caution sedation) Vital Signs Vital Name Observation Time Observation Value Comments Source Systolic blood 2021-11-09 19:27:50 142 mm[Hg] [facility] Diastolic blood 2021-11-09 19:27:50 92 mm[Hg] [facility] Heart rate 2021-11-09 19:27:50 58 /min [facility] Respiratory rate 2021-11-09 19:27:50 19 /min [facility] Oxygen saturation in 2021-11-09 19:27:50 98 /min [facility] Arterial blood by [facility] Pulse oximetry Branch Body temperature 2021-11-09 17:04:37 36 Melissa [facility] Body height 2021-11-09 16:47:[address] [facility] Body weight 2021-11-09 16:47:[address] [facility] BMI 2021-11-09 16:47:00 43.40 kg/m2 [facility] Systolic blood 2021-07-21 13:44:00 136 mm[Hg] Theresa Seybold pressure Diastolic blood 2021-07-21 13:44:00 78 mm[Hg] Kelse y Seybold pressure Heart rate 2021-07-21 13:44:00 65 /min Theresa bowersbomaria esther Body temperature 2021-07-21 13:44:00 36.89 Melissa Marie Smith Respiratory rate 2021-07-21 13:44:00 12 /min Marie Smith Body height 2021-07-21 13:44:00 182.9 cm Theresa moreau Body weight 2021-07-21 13:44:00 146.965 kg Theresa moreau BMI 2021-07-21 13:44:00 43.94 kg/m2 Theresa moreau Procedures Procedure Date / Time Performed Performing Clinician [facility] e CT ABDOMEN PELVIS WO 2021-11-09 18:17:11 Ginna Trujillo [facility] CONTRAST [facility] LIPASE 2021-11-09 17:43:00 Cassandra [facility] COMP. METABOLIC PANEL 2021-11-09 17:43:00 Ginna Trujillo [facility] ([id number]) [facility] CBC WITH DIFF 2021-11-09 17:43:00 Cassandra [facility] URINALYSIS 2021-11-09 17:43:00 Cassandra [facility] CONSENT/REFUSAL FOR 2021-11-09 16:54:31 Doctor Unassigned, No [facility] DIAGNOSIS AND Name [facility] TREATMENT NOTICE OF PRIVACY 2021-11-09 16:42:03 Doctor Unassigned, No [facility] PRACTICES Name [facility] EXTERNAL IMAGING 2021-07-21 16:01:00 Neolle Barrios old Encounters Start End Encounter Admission Attending Care Care Encounter Source Date/Time Date/Time Type Type Clinicians Facility Department ID 2023-02-12 2023-02-12 Outpatient THERESA BARRIOS [id number] Theresa 00:00:00 00:00:00 NOELLE gil 2023-02-10 2023-02-10 Outpatient THERESA GARZA [id number] Theresa 00:00:00 00:00:00 FRENCH gil 2023-01-06 2023-01-06 Outpatient THERESA BARRIOSSEY [id number] Theresa 00:00:00 00:00:00 NOELLE Seybol d 2023-01-04 2023-01-04 Outpatient MYKELSEYONL THERESA MOE [id number] Theresa 00:00:00 00:00:00 MD DAVIDE Seybol d 2023-01-02 2023-01-02 Outpatient HUNDL THERESA MOE [id number] Theresa 00:00:00 00:00:00 NOELLE Seybol d 2022-11-27 2022-11-27 Outpatient HUNDL THERESA MOE [id number] Theresa 00:00:00 00:00:00 NOELLE Seybol d 2022-09-24 2022-09-24 Outpatient HUNDL THERESA MOE [id number] Theresa 00:00:00 00:00:00 NOELLE Seybol d 2022-08-09 2022-08-09 Outpatient HUNDL THERESA MOE [id number] Theresa 00:00:00 00:00:00 NOELLE Seybol d 2022-07-01 2022-07-01 Outpatient HUNDL THERESA MOE [id number] Theresa 00:00:00 00:00:00 NOELLE Seybol d 2022-06-30 2022-06-30 Outpatient HUNDL THERESA MOE [id number] Theresa 00:00:00 00:00:00 NOELLE Seybol d 2022-06-07 2022-06-07 Outpatient HUNDL THERESA MOE [id number] Thereas 00:00:00 00:00:00 NOELLE Seybol d 2022-05-26 2022-05-26 Outpatient HUNDL THERESA MOE [id number] Theresa 00:00:00 00:00:00 NOELLE Seybol d 2022-04-28 2022-04-28 Outpatient HUNDL, THERESA MOE [id number] Theresa 00:00:00 00:00:00 NOELLE Seybol d 2022-01-15 2022-01-15 Outpatient HUNDLTHERESA [id number] Theresa 00:00:00 00:00:00 NOELLE Seybol d 2021-12-18 2021-12-18 Outpatient ROSELINE THERESA MOE [id number] Theresa 00:00:00 00:00:00 MD DAVIDE Seybol d 2021-12-08 2021-12-08 Outpatient THREESA CHAMBERS [id number] Theresa 08:30:00 08:30:00 JAILENE Seybol d 2021-11-23 2021-11-23 Outpatient THERESA CHAMBERS [id number] Theresa 00:00:00 00:00:00 JAILENE Seybol d 2021-11-12 2021-11-12 Outpatient THERESA CHAMBERS [id number] Theresa 00:00:00 00:00:00 JAILENE Seybol d 2021-11-10 2021-11-10 Office Benito Chambers [id number] Theresa 14:00:00 14:30:00 Visit Jailene Rogers [id number] Se galvan [id number] 2021-11-09 2021-11-09 Emergency X EBRAHIM, [facility] ERT [id number] Univers 11:45:00 14:59:00 GINNA mcgee [facility] 2021-11-09 2021-11-09 Emergency Ebractm, [facility] [id number] Univers 11:45:00 14:59:00 Ginna CYR [id number] i hood [facility] [id number] [facility] [id number] [address] 2021-09-18 2021-09-18 Outpatient THERESA BARRIOS [id number] Theresa 00:00:00 00:00:00 NOELLE Seybol d 2021-09-18 2021-09-18 Outpatient THERESA BARRIOS [id number] Theresa 00:00:00 00:00:00 NOELLE Seybol d 2021-08-17 2021-08-17 Outpatient THERESA MOE [id number] Theresa 10:00:00 10:00:00 Seybol d 2021-07-30 2021-07-30 Outpatient THERESA BARRIOS [id number] Theresa 00:00:00 00:00:00 NOELLE Seybol d 2021-07-29 2021-07-29 Outpatient THERESA BARRIOS [id number] Theresa 00:00:00 00:00:00 NOELLE Seybol d 2021-07-28 2021-07-28 Outpatient THERESA BARRIOS [id number] Theresa 00:00:00 00:00:00 NOELLE Seybol d 2021-07-22 2021-07-22 Outpatient THERESA MOE [id number] Theresa 00:00:00 00:00:00 Seybol d 2021-07-21 2021-07-21 Outpatient LAB90 THERESA MOE [id number] Theresa 09:55:00 09:55:00 Seybol d 2021-07-21 2021-07-21 Office MaxinereaganBenito [id number] Theresa 09:00:00 09:30:00 Visit Noelle Rogers [id number] Se ybold [id number] 2021-07-21 2021-07-21 Outpatient THERESA BARRIOS [id number] Theresa 00:00:00 00:00:00 NOELLE Seybol d 2021-04-15 2021-04-15 Outpatient THERESA GARZA [id number] Theresa 00:00:00 00:00:00 FRENCH Seybol d 2020-12-22 2020-12-22 Outpatient ROSELINE MOE [id number] Theresa 00:00:00 00:00:00 MD DAVIDE Seybol d 2020-12-13 2020-12-13 Outpatient VASHTI ARIAS [id number] Theresa 08:50:00 08:50:00 Seybol d Results Test Description Test Time Test Comments Results Result Comments Source COMP. METABOLIC PANEL (07014) 2021-11-09 18:17:22 Test Item Value Reference Range Interpretation Comme nts NA (test code = 7962194116) 140 mmol/L 135-145 K (test code = 3308483286) 4.5 mmol/L 3.5-5.0 CL (test code = 0769759685) 100 mmol/L 98-108 CO2 TOTAL (test code = 2045231636) 28 mmol/L 23-31 AGAP (test code = 4130434892) 2-16 BUN (test code = 3754733760) 16 mg/dL 7-23 GLUCOSE (test code = 6103332528) 114 mg/dL 70-110 H CREATININE (test code = 0.93 mg/dL 0.60-1.25 5044198056) TOTAL BILI (test code = 1.6 mg/dL 0.1-1.1 H 9829944651) CALCIUM (test code = 8325550201) 9.4 mg/dL 8.6-10.6 T PROTEIN (test code = 5536388354) 7.5 g/dL 6.3-8.2 ALBUMIN (test code = 3759026496) 4.8 g/dL 3.5-5.0 ALK PHOS (test code = 3006852581) 91 U/L 34-122 ALTv (test code = 1742-6) 21 U/L 5-50 AST(SGOT) (test code = 0024795927) 26 U/L 13-40 eGFR (test code = 8620907613) mL/min/1.73m2 HERMELINDO (test code = HERMELINDO) Association [...] tests). Lab Interpretation (test code = Abnormal 32641-3) [facility]16[facility]42 Test Item Value Reference Range Interpretation Comments LIPASE (test code = 0941204356) 87 U/L 0-220 Lab Interpretation (test code = Normal 40598-5) [facility] WITH [id number] 18:04:05 Test Item Value Reference Range Interpretation Comments WBC (test code = See_Comment [Automated 2990-2) message] The sy stem which generated this result transmitted reference range : 4.20 - 10.70 10*3/?L. The reference range was not used to interpret this result as normal/abnormal . RBC (test code = See_Comment [Automated 449-8) message] The sy stem which generated this [...] RDW-SD (test code = 47.8 fL 38.5-51.6 13709-9) RDW-CV (test code = 13.9 % 12.1-15.4 788-0) PLT (test code = See_Comment [Automated 927-3) message] The sy stem which generated this result transmitted reference range : 150 - 328 10*3/ ?L. The reference r jacki was not used to interpret this result as normal/abnormal . MPV (test code = 10.3 fL 9.8-13.0 08026-0) NRBC/100 WBC (test See_Comment [Automat ed code = 1671145409) message] The system which generated this result transmitted reference range : 0.0 - 10.0 /100 WBCs. The refer ence range was not u sed to interpret th is result as normal/abnormal . NRBC x10^3 (test code <0.01 See_Comment [Auto mated = 5078847996) message] The s ystem which generated this result transmitted reference range : 10*3/?L. The reference range was not used to interpret this result as normal/abnormal . GRAN MAT (NEUT) % 76.3 % (test code = 770-8) IMM GRAN % (test code 0.50 % = 9865678975) LYMPH % (test code = 14.6 % 736-9) MONO % (test code = 6.8 % 5905-5) EOS % (test code = 1.1 % 713-8) BASO % (test code = 0.7 % 706-2) GRAN MAT x10^3(ANC) 5.65 10*3/uL 1.99-6.95 (test code = 9685693288) IMM GRAN x10^3 (test 0.04 10*3/uL 0.00-0.06 code = 2503333049) LYMPH x10^3 (test code 1.08 10*3/uL 1.09-3.23 L = 731-0) MONO x10^3 (test code 0.50 10*3/uL 0.36-1.02 = 742-7) EOS x10^3 (test code = 0.08 10*3/uL 0.06-0.53 711-2) BASO x10^3 (test code 0.05 10*3/uL 0.01-0.09 = 704-7) Lab Interpretation Abnormal (test code = 51249-4) [id number] 16:26:00 Test Item Value Reference Range Interpretation Comments Radiology Study observation (narrative) (test code = 92106-8) HERMELINDO (test code = HERMELINDO) [facility]. ?[place] [facility] Knee Right 3 View07/21/2021 ?1101 am [...] scanning Lab Interpretation Abnormal (test code = 46193-4) Theresa Smith
[2023-03-04] MEDS ORDERED: NA CHLORIDE 0.9% 1,000 ML ONE (09:43)
[2023-03-04] MEDS ORDERED: HYDROMORPHONE HCL 1 MG/ML INJ ONE ×2 (09:44→12:01)
[2023-03-04] MEDS ORDERED: ONDANSETRON 4 MG/2 ML VIAL ONE (09:44)
[2023-03-04] MEDS ORDERED: KETOROLAC 30 MG/ML INJ ONE (09:44)
[2023-03-04 09:57] LABS: Hematocrit 46.8 % (39.6-49.0); Lymphocytes % 12.8 % (15.3-44.8); MCV 96.5 fL (80-100); MPV 8.3 fL (7.6-11.3); Platelets 226 thou/uL (152-406); RBC Red Blood Cell Count 4.85 M/uL (4.33-5.43)
--- NOTE | 2023-03-04 10:18 | RAD REPORT ---
EXAM DESCRIPTION: CT - Abdomen Pelvis Wo Contrast - 03/04/2023 9:49 am CLINICAL HISTORY: Abdominal pain. FLANK PAIN COMPARISON: Stone Protocol dated 01/06/2023 TECHNIQUE: CT imaging of the abdomen and pelvis was performed without contrast. Solid organ, bowel a nd vascular assessment is limited due to lack of IV and oral contrast. All CT scans are performed using dose optimization technique as appropriate and may include automated exposure control or mA/KV adjustment according to patient size. FINDINGS: The lower lung price are clear.Postsurgical changes affect the stomach. The liver, spleen, pancreas, adrenal glands and right kidney are within normal limits for a limited n on-contrast examination.Mild left hydronephrosis and hydroureter is present caused by a 4 mm stone di stal left ureter. No bowel obstruction, free air, free fluid or abscess. Mild sigmoid diverticulosis without diverticul itis. The appendix is normal. Moderate multilevel lumbar degenerative changes. IMPRESSION: 4 mm distal left ureter stone resulting in mild left hydronephrosis and hydroureter. Sigmoid diverticulosis coli without diverticulitis. A limited non-contrast examination was performed as detailed.
[2023-03-04 10:55] LABS: Specific Gravity 1.023 (1.005-1.030); Urine Bacteria <20 /HPF (<20); Urine Bilirubin NEGATIVE (Negative); Urine Blood 3+ (OVER) (Negative); Urine Clarity Clear (Clear); Urine Color Light-Yellow (Yellow); Urine Glucose NEGATIVE (Negative); Urine Mucus Slight /HPF (None Seen); Urine Protein NEGATIVE (Negative); Urine RBC >50 /HPF (None Seen); Urine Urobilinogen Normal (Normal)
[2023-03-04 10:59] LABS: Bilirubin Total 0.9 mg/dL (0.2-1.0); Potassium 4.1 mEq/L (3.5-5.1); Protein, Total 7.2 g/dL (6.4-8.2)
--- NOTE | 2023-03-04 11:24 | EDPHYS ---
Physician Documentation [facility] Name: Gerhard Gonzalez Age: 62 yrs Sex: Male : 1960 Arrival Date: 03/04/2023 Time: 08:30 Bed 18 Private MD: ED Physician Ramone Gerber HPI: 03/04 10:55 This 62 yrs old Male presents to ER via Ambulatory with complaints of Possible Kidney rt Stone. 10:55 Patient presents to the ED with left lower quadrant pain rating to the left flank. rt Started this morning. Pain is severe in severity, sharp in nature. States that this is consistent with prior episodes of kidney stones. Denies other acute complaints at this time, no aggravating relieving factors.. Historical: - Allergies: 08:59 Naproxen; hb - Home Meds: 08:59 Simvastatin Oral [Active]; Celebrex Oral [Active]; gabapentin oral [Active]; hb - PMHx: 08:59 Hypertensive disorder; Kidney stone; hb - Immunization history:: Adult Immunizations unknown. - Social history:: Smoking status: unknown. - Family history:: not pertinent. ROS: 10:55 Constitutional: Negative for fever, chills, and weight loss, Cardiovascular: Negative rt for chest pain, palpitations, and edema, Respiratory: Negative for shortness of breath, cough, wheezing, and pleuritic chest pain, MS/Extremity: Negative for injury and deformity, Skin: Negative for injury, rash, and discoloration, Neuro: Negative for headache, weakness, numbness, tingling, and seizure, 10:55 Abdomen/GI: Positive for abdominal pain, nausea, 10:55 Back: Positive for flank pain, Negative for injury or acute deformity, Exam: 10:55 Constitutional: This is a well developed, well nourished patient who is awake, alert, rt and in no acute distress. Head/Face: Normocephalic, atraumatic. Chest/axilla: Normal chest wall appearance and motion. Nontender with no deformity. No lesions are appreciated. Cardiovascular: Regular rate and rhythm with a normal S1 and S2. No gallops, murmurs, or rubs. Normal PMI, no JVD. No pulse deficits. Respiratory: Lungs have equal breath sounds bilaterally, clear to auscultation and percussion. No rales, rhonchi or wheezes noted. No increased work of breathing, no retractions or nasal flaring. Abdomen/GI: Soft, non-tender, with normal bowel sounds. No distension or tympany. No guarding or rebound. No evidence of tenderness throughout. Back: No spinal tenderness. No costovertebral tenderness. Full range of motion. MS/ Extremity: Pulses equal, no cyanosis. Neurovascular intact. Full, normal range of motion. Neuro: Awake and alert, GCS 15, oriented to person, place, time, and situation. Cranial nerves II-XII grossly intact. Motor strength 5/5 in all extremities. Sensory grossly intact. Cerebellar exam normal. Normal gait. Psych: Awake, alert, with orientation to person, place and time. Behavior, mood, and affect are within normal limits. Vital Signs: 08:57 BP 170 / 109; Pulse 64; Resp 18; Temp 98.5; Pulse Ox 98% on R/A; Weight 145.15 kg; hb Height 6 ft. 0 in. ; Pain 8/10; 09:56 Pain 2/10; nj1 09:56 Pain 2/10; nj1 09:57 BP 130 / 79; Pulse 63; Resp 18; Pulse Ox 98% ; Pain 2/10; nj1 11:50 BP 139 / 84; Pulse 67; Resp 18; Pulse Ox 96% ; Pain 5/10; nj1 12:23 BP 127 / 79; Pulse 60; Resp 17; Pulse Ox 95% on R/A; Pain 1/10; nj1 12:24 Pain 1/10; nj1 08:57 Body Mass Index 43.40 (145.15 kg, 182.88 cm) hb 08:57 Pain Scale: Adult hb 09:56 Pain Scale: Adult nj1 09:56 Pain Scale: Adult nj1 09:57 Pain Scale: Adult nj1 11:50 Pain Scale: Adult nj1 12:23 Pain Scale: Adult nj1 12:24 Pain Scale: Adult nj1 MDM: 09:17 Patient medically screened. rt 11:24 Differential Diagnosis Ureterolithiasis, kidney stone, bowel obstruction, rt pyelonephritis. 11:24 Data reviewed: vital signs, nurses notes, lab test result(s), radiologic studies. rt Independent interpretation of the following test(s) in the Emergency Department CT Scan: My interpretation is No bowel obstruction syndrome interpretation of CT scan images. Care significantly affected by the following chronic conditions: Hypertension. Counseling: I had a detailed discussion with the patient and/or guardian regarding the historical points, exam findings, and any diagnostic results supporting the discharge/admit diagnosis, lab results, radiology results, the need for outpatient follow up, to return to the emergency department if symptoms worsen or persist or if there are any questions or concerns that arise at home. Response to treatment: the patient's symptoms have markedly improved after treatment. 03/04 09:23 Order name: CBC with Diff; Complete Time: 10:21 rt 03/04 09:23 Order name: CMP; Complete Time: 10:59 rt 03/04 09:23 Order name: UAM; Complete Time: 10:59 rt 03/04 09:23 Order name: CT Abd/Pelvis - Without Contrast; Complete Time: 10:21 rt Administered Medications: 09:37 Drug: Ondansetron IVP 4 mg IVP once; over 2 minutes Route: IVP; Site: right antecubital;nj1 09:56 Follow up: Response: No adverse reaction nj1 09:39 Drug: Ketorolac IVP 30 mg IVP once Route: IVP; Site: right antecubital; nj1 09:56 Follow up: Pain 2/10 Adult; Response: No adverse reaction; Pain is decreased nj1 09:40 Drug: HYDROmorphone IVP 1 mg IVP once Route: IVP; Site: right antecubital; nj1 09:56 Follow up: Pain 2/10 Adult; Response: No adverse reaction; Pain is decreased nj1 09:40 Drug: NS 0.9% IV 1000 ml IV at 1 bolus Per protocol; 1000 mL bolus Route: IV; Rate: 1 nj1 bolus; Site: right antecubital; 11:20 Follow up: Response: No adverse reaction; IV Status: Completed infusion; IV Intake: nj1 1000ml 11:49 Drug: HYDROmorphone IVP 1 mg IVP once Route: IVP; Site: right antecubital; nj1 12:24 Follow up: Pain 1/10 Adult; Response: No adverse reaction; Pain is decreased nj1 Disposition Summary: 03/04/23 11:23 Discharge Ordered Notes: Location: Home rt Problem: new rt Symptoms: have improved rt Condition: Stable rt Diagnosis - Calculus of ureter rt Followup: rt - With: Diogo Arellano MD - When: 5 - 6 days - Reason: Discharge Instructions: - Discharge Summary Sheet rt - Kidney Stones rt Forms: - Medication Reconciliation Form rt - Thank You Letter rt - Antibiotic Education rt - Prescription Opioid Use rt - Patient Portal Instructions rt - Leadership Thank You Letter rt Signatures: Dispatcher [employer] Shelbi Ornelas RN RN Ramone Gerber MD MD rt Rhianna Weiss RN RN nj1
--- NOTE | 2023-03-04 11:24 | ER ---
Nurse's Notes [facility] Name: Gerhard Gonzalez Age: 62 yrs Sex: Male : 1960 Arrival Date: 03/04/2023 Time: 08:30 Bed 18 Private MD: Diagnosis: Calculus of ureter Presentation: 03/04 08:57 Chief complaint: Left flank pain, difficulty urinating, and N/V since this morning. Hx hb of kidney stones. Coronavirus screen: At this time, the client does not indicate any symptoms associated with coronavirus-19. Ebola Screen: No symptoms or risks identified at this time. Initial Sepsis Screen: Does the patient meet any 2 criteria? No. Patient's initial sepsis screen is negative. Does the patient have a suspected source of infection? No. Patient's initial sepsis screen is negative. Risk Assessment: Do you want to hurt yourself or someone else? Patient reports no desire to harm self or others. Onset of symptoms was March 04, 2023. 08:57 Method Of Arrival: Ambulatory hb 08:57 Acuity: SALO 3 hb Historical: - Allergies: 08:59 Naproxen; hb - Home Meds: 08:59 Simvastatin Oral [Active]; Celebrex Oral [Active]; gabapentin oral [Active]; hb - PMHx: 08:59 Hypertensive disorder; Kidney stone; hb - Immunization history:: Adult Immunizations unknown. - Social history:: Smoking status: unknown. - Family history:: not pertinent. Screenin:46 [facility] ED Fall Risk Assessment (Adult) Score/Fall Risk Level 0 - 2 = Low Risk nj1 Oriented to surroundings, Maintained a safe environment, Hourly rounding (assess needs \T\ fall precautionary measures) done. Abuse screen: Denies threats or abuse. Denies injuries from another. Nutritional screening: No deficits noted. Tuberculosis screening: No symptoms or risk factors identified. Assessment: 09:25 General: Appears in no apparent distress. uncomfortable, Behavior is calm, cooperative, nj1 appropriate for age. 09:25 Pain: Complains of pain in left lower quadrant Pain currently is 9 out of 10 on a pain nj1 scale. Neuro: Level of Consciousness is awake, alert, obeys commands, Oriented to person, place, time, situation. Cardiovascular: Patient's skin is warm and dry. Respiratory: Airway is patent Respiratory effort is even, unlabored. GI: Reports lower abdominal pain, nausea, vomiting. 10:09 Reassessment: Patient appears in no apparent distress at this time. Patient and/or nj1 family updated on plan of care and expected duration. Pain level reassessed. Patient is alert, oriented x 3, equal unlabored respirations, skin warm/dry/pink. Patient states feeling better. Patient states symptoms have improved. 11:52 Reassessment: Patient appears in no apparent distress at this time. Patient and/or nj1 family updated on plan of care and expected duration. Pain level reassessed. Patient is alert, oriented x 3, equal unlabored respirations, skin warm/dry/pink. Med wait. 12:24 Reassessment: Patient appears in no apparent distress at this time. Patient and/or nj1 family updated on plan of care and expected duration. Pain level reassessed. Patient is alert, oriented x 3, equal unlabored respirations, skin warm/dry/pink. Patient states feeling better. Patient states symptoms have improved. Vital Signs: 08:57 BP 170 / 109; Pulse 64; Resp 18; Temp 98.5; Pulse Ox 98% on R/A; Weight 145.15 kg; hb Height 6 ft. 0 in. ; Pain 8/10; 09:56 Pain 2/10; nj1 09:56 Pain 2/10; nj1 09:57 BP 130 / 79; Pulse 63; Resp 18; Pulse Ox 98% ; Pain 2/10; nj1 11:50 BP 139 / 84; Pulse 67; Resp 18; Pulse Ox 96% ; Pain 5/10; nj1 12:23 BP 127 / 79; Pulse 60; Resp 17; Pulse Ox 95% on R/A; Pain 1/10; nj1 12:24 Pain 1/10; nj1 08:57 Body Mass Index 43.40 (145.15 kg, 182.88 cm) hb 08:57 Pain Scale: Adult hb 09:56 Pain Scale: Adult nj1 09:56 Pain Scale: Adult nj1 09:57 Pain Scale: Adult nj1 11:50 Pain Scale: Adult nj1 12:23 Pain Scale: Adult nj1 12:24 Pain Scale: Adult nj1 ED Course: 08:32 Patient arrived in ED. im 08:33 Ramone Gerber MD is Attending Physician. rt 08:59 Triage completed. hb 09:03 Rhianna Weiss, RN is Primary Nurse. nj1 09:18 Arm band placed on. nj1 09:25 Provided Education on: call light, fall precautions. nj1 09:25 Patient has correct armband on for positive identification. Bed in low position. Call nj1 light in reach. 09:25 Inserted saline lock: 20 gauge in right antecubital area, using aseptic technique. nj1 Blood collected. 09:51 CT Abd/Pelvis - Without Contrast In Process Unspecified. EDMS 11:23 Diogo Arellano MD is Referral Physician. rt 11:52 No provider procedures requiring assistance completed. nj1 12:24 IV discontinued, intact, bleeding controlled. nj1 Administered Medications: 09:37 Drug: Ondansetron IVP 4 mg IVP once; over 2 minutes Route: IVP; Site: right antecubital;nj1 09:56 Follow up: Response: No adverse reaction nj1 09:39 Drug: Ketorolac IVP 30 mg IVP once Route: IVP; Site: right antecubital; nj1 09:56 Follow up: Pain 2/10 Adult; Response: No adverse reaction; Pain is decreased nj1 09:40 Drug: HYDROmorphone IVP 1 mg IVP once Route: IVP; Site: right antecubital; nj1 09:56 Follow up: Pain 2/10 Adult; Response: No adverse reaction; Pain is decreased nj1 09:40 Drug: NS 0.9% IV 1000 ml IV at 1 bolus Per protocol; 1000 mL bolus Route: IV; Rate: 1 nj1 bolus; Site: right antecubital; 11:20 Follow up: Response: No adverse reaction; IV Status: Completed infusion; IV Intake: nj1 1000ml 11:49 Drug: HYDROmorphone IVP 1 mg IVP once Route: IVP; Site: right antecubital; nj1 12:24 Follow up: Pain 1/10 Adult; Response: No adverse reaction; Pain is decreased nj1 Medication: 11:52 VIS not applicable for this client. nj1 Intake: 11:20 IV: 1000ml; Total: 1000ml. nj1 Outcome: 11:23 Discharge ordered by MD. rt 12:24 Discharged to home ambulatory, nj1 12:24 Condition: stable 12:24 Discharge instructions given to patient, Instructed on discharge instructions, follow up and referral plans. medication usage, Demonstrated understanding of instructions, follow-up care, medications, Prescriptions given X 2, 12:24 Patient left the ED. nj1 Signatures: Dispatcher [employer] EDMS Shelbi Llamas, RN RN Ramone Gerber MD MD rt Rhianna Weiss RN RN nj1 Caroline Whipple Corrections: (The following items were deleted from the chart) 10:07 09:57 Pulse 63bpm; Resp 18bpm; Pulse Ox 98%; Pain 06/18, Adult; nj1 nj1 11:54 11:52 Reassessment: Patient appears in no apparent distress at this time. Patient nj1 and/or family updated on plan of care and expected duration. Pain level reassessed. Patient is alert, oriented x 3, equal unlabored respirations, skin warm/dry/pink. nj1
[2023-03-04 12:29] VITALS: TEMP 98.5
[2023-03-04 12:36] VITALS: BP 127/79; O2SAT 95
== END 2023-03-04 12:24 | disposition home or self-care (01) ==
LOC: ER 08:30
DX: N20.1 Calculus of ureter (principal); I10 Essential (primary) hypertension; Z88.8 Allergy status to other drugs, medicaments and biological substances
CPT/HCPCS: 36415; 74176; 80053; 81001; 85025; 96361; 96374; 96375; 99284; J1170; J2405; J7030

== ENCOUNTER 2023-09-06 13:29 | Emergency (ER) | payer BC ==
[2023-09-06] MEDS ORDERED: TDAP (DIPHTH,PERTUSS(ACELL),TET VAC) 0.5 ML VIAL IMVAC ONE (14:04)
[2023-09-06] MEDS ORDERED: LIDOCAINE 2% W/EPI 1:200,000 MPF 20 ML VIAL IM ONE (14:04)
--- NOTE | 2023-09-06 14:47 | EDPHYS ---
Physician Documentation [facility] Name: Gerhard Gonzalez Age: 63 yrs Sex: Male : 1960 Arrival Date: 09/06/2023 Time: 13:29 Bed 16 Private MD: ED Physician Lane Ely HPI: 09/05 13:45 This 63 yrs old Male presents to ER via Ambulatory with complaints of Laceration To Arm.cp 13:45 The patient has a laceration occurred by sharp edge of metal tool. cp 13:45 The laceration(s) is(are) located on the heel of left hand ulna side. Onset: The cp symptoms/episode began/occurred just prior to arrival. Associated signs and symptoms: The patient has no apparent associated signs or symptoms. Historical: - Allergies: 13:36 Naproxen; as6 - PMHx: 13:36 Hypertensive disorder; Kidney stone; as6 - PSHx: 13:36 gastric bypass (Kidney stone ); knee (Kidney stone ); back (Kidney stone ); as6 - Immunization history:: Last tetanus immunization: < 10 years ago. - Infectious Disease History:: Denies. - Social history:: Smoking status: Patient denies any tobacco usage or history of. ROS: 13:50 Skin: Positive for laceration(s), of the heel of left hand ulna side, cp 13:50 Eyes: Negative for injury, pain, redness, and discharge, cp 13:50 Constitutional: Negative for body aches, chills, fever, 13:50 Cardiovascular: Negative for chest pain, palpitations, 13:50 Respiratory: Negative for cough, shortness of breath, wheezing, 13:50 Abdomen/GI: Negative for abdominal pain, nausea, vomiting, and diarrhea, 13:50 Neuro: Negative for dizziness, headache, numbness, tingling, weakness, 13:50 All other systems are negative, Exam: 13:55 Constitutional: The patient appears in no acute distress, alert, awake, non-toxic, well cp developed, well nourished, 13:55 Head/Face: Normocephalic, atraumatic. cp 13:55 Musculoskeletal/extremity: Extremities: grossly normal except: noted in the left hand: no bony tenderness to palpation, ROM: full active range of motion, in the left hand, Perfusion: the extremity is normally perfused throughout, Sensation intact. 13:55 Skin: injury, laceration(s), of the heel of left hand ulna side, that can be described as clean, no foreign body, linear, with mild bleeding, Vital Signs: 13:35 BP 135 / 88; Pulse 84; Resp 18 S; Temp 97.6(TE); Pulse Ox 97% on R/A; Weight 125.19 kg as6 (R); Height 6 ft. 0 in. (R); Pain 4/10; 13:35 Body Mass Index 37.43 (125.19 kg, 182.88 cm) as6 13:35 Pain Scale: Adult as6 Laceration: 14:44 Wound Repair of 2.5cm ( 1.0in ) subcutaneous laceration to ulna side of left wrist. cp Linear shaped.. Distal neuro/vascular/tendon intact. Anesthesia: Local anesthetic administered with 4 mls of 1% lidocaine w/ Epi. Wound prep: Moderate cleansing with hibiclenz by me, Wound irrigation by me. Skin closed with 4 4-0 Prolene using interrupted sutures and sterile technique. Dressed with Bacitracin, 4x4's. Patient tolerated well. MDM: 13:39 Patient medically screened. cp 14:45 Data reviewed: vital signs, nurses notes, and as a result, I will discharge patient. cp 14:45 Differential diagnosis: superficial laceration, tendon injury, vascular injury. I cp considered the following discharge prescriptions or medication management in the emergency department Medications were administered in the Emergency Department. See MAR. Care significantly affected by the following chronic conditions: Hypertension. Counseling: I had a detailed discussion with the patient and/or guardian regarding the historical points, exam findings, and any diagnostic results supporting the discharge/admit diagnosis, to return to the emergency department if symptoms worsen or persist or if there are any questions or concerns that arise at home. Response to treatment: the patient's symptoms have markedly improved after treatment, and as a result, I will discharge patient. Administered Medications: 14:15 Drug: Lidocaine-Epinephrine Infiltration -1%: (1:100,000) 5 ml 20 ml Infiltration once; bp to bedside Volume: 20 ml; Route: Infiltration; 14:15 Drug: Boostrix Tdap IM 0.5 ml IM once; as a single dose Route: IM; Site: left deltoid; bp 14:27 Follow up: Response: No adverse reaction bp Disposition: 22:12 Co-signature as Attending Physician, Lane Ely MD I agree with the assessment and [facility] plan of care. Disposition Summary: 09/06/23 14:46 Discharge Ordered Notes: Location: Home cp Problem: new cp Symptoms: have improved cp Condition: Stable cp Diagnosis - Laceration without foreign body of left wrist cp Followup: cp - With: Private Physician - When: 10 - 14 days - Reason: Staple/Suture removal Discharge Instructions: - Discharge Summary Sheet cp - Laceration Care, Adult cp Forms: - Medication Reconciliation Form cp - Antibiotic Education cp - Prescription Opioid Use cp - Patient Portal Instructions cp - Leadership Thank You Letter cp Signatures: Lane Ely MD MD cha Page, Corey, PA PA cp Peltier, Brian, RN RN Jose Martínez RN RN as6
--- NOTE | 2023-09-06 14:47 | ER ---
Nurse's Notes [facility] Name: Gerhard Gonzalez Age: 63 yrs Sex: Male : 1960 Arrival Date: 09/06/2023 Time: 13:29 Bed 16 Private MD: Diagnosis: Laceration without foreign body of left wrist Presentation: 09/05 13:35 Chief complaint: Patient states: laceration to left forearm. Coronavirus screen: At as6 this time, the client does not indicate any symptoms associated with coronavirus-19. Ebola Screen: No symptoms or risks identified at this time. Initial Sepsis Screen: Does the patient meet any 2 criteria? No. Patient's initial sepsis screen is negative. Does the patient have a suspected source of infection? No. Patient's initial sepsis screen is negative. Risk Assessment: Do you want to hurt yourself or someone else? Patient reports no desire to harm self or others. Onset of symptoms was September 06, 2023. 13:35 Method Of Arrival: Ambulatory as6 13:35 Acuity: SALO 4 as6 13:45 Complicating Factors: There are no complicating factors for this patient. bp Triage Assessment: 13:45 General: Appears in no apparent distress. comfortable, Behavior is appropriate for age. bp Pain: Complains of pain in left hand. Injury Description: Laceration sustained to heel of left hand is clean, 0.5 to 2.5 cm long, not bleeding. Historical: - Allergies: 13:36 Naproxen; as6 - PMHx: 13:36 Hypertensive disorder; Kidney stone; as6 - PSHx: 13:36 gastric bypass (Kidney stone ); knee (Kidney stone ); back (Kidney stone ); as6 - Immunization history:: Last tetanus immunization: < 10 years ago. - Infectious Disease History:: Denies. - Social history:: Smoking status: Patient denies any tobacco usage or history of. Screenin:45 [facility] ED Fall Risk Assessment (Adult) History of falling in the last 3 months, bp including since admission No falls in past 3 months (0 pts). Abuse screen: Denies threats or abuse. Denies injuries from another. Nutritional screening: No deficits noted. Tuberculosis screening: No symptoms or risk factors identified. Assessment: 13:45 General: Appears in no apparent distress. Behavior is appropriate for age. bp Musculoskeletal: Circulation, motion, and sensation intact. Range of motion: intact in all extremities. Injury Description: Laceration sustained to heel of left hand is clean, 0.5 to 2.5 cm long, is bleeding no active bleeding noted. Vital Signs: 13:35 BP 135 / 88; Pulse 84; Resp 18 S; Temp 97.6(TE); Pulse Ox 97% on R/A; Weight 125.19 kg as6 (R); Height 6 ft. 0 in. (R); Pain 4/10; 13:35 Body Mass Index 37.43 (125.19 kg, 182.88 cm) as6 13:35 Pain Scale: Adult as6 ED Course: 13:32 Patient arrived in ED. mg5 13:32 [address] Vargas PA is PHCP. cp 13:33 Lane Ely MD is Attending Physician. cp 13:36 Triage completed. as6 13:37 Arm band placed on right wrist. as6 13:39 Dong An, AILYN is Primary Nurse. bp 13:45 Patient has correct armband on for positive identification. Provided Education on: LAC bp REPAIR. 13:45 Assist provider with laceration repair on heel of left hand that was 2.5 cm. or less bp using sutures. Set up tray. Performed by Lane MORA Dressed with Ramo, Patient tolerated well. Patient did not have IV access during this emergency room visit. Administered Medications: 14:15 Drug: Lidocaine-Epinephrine Infiltration -1%: (1:100,000) 5 ml 20 ml Infiltration once; bp to bedside Volume: 20 ml; Route: Infiltration; 14:15 Drug: Boostrix Tdap IM 0.5 ml IM once; as a single dose Route: IM; Site: left deltoid; bp 14:27 Follow up: Response: No adverse reaction bp Medication: 13:45 VIS not applicable for this client. bp Outcome: 13:45 Discharged to home ambulatory, with family, bp 13:45 Condition: stable 13:45 Discharge instructions given to patient, Instructed on discharge instructions, follow up and referral plans. wound care, Demonstrated understanding of instructions, follow-up care, wound care, 14:46 Discharge ordered by MD. cp 14:59 Patient left the ED. bp Signatures: Lane Vargas PA PA cp Dong An, AILYN RN bp Jose Robbins RN RN as6 Gin Byrd mg5
[2023-09-06 15:43] VITALS: BP 135/88; TEMP 97.6; O2SAT 97
== END 2023-09-06 14:59 | disposition home or self-care (01) ==
LOC: ER 13:29
PROC: 0HQEXZZ Repair Left Lower Arm Skin, External Approach (ICD-10-PCS; principal; 2023-09-06)
DX: S61.512A Laceration without foreign body of left wrist, initial encounter (principal); Z88.5 Allergy status to narcotic agent
CPT/HCPCS: 96372; 99284